=== PATIENT | female | born 1995 | race Caucasian/White ===

== ENCOUNTER 2025-07-28 13:46 | Inpatient (IN) | payer SELFPAY ==
[~2025-07-28] VITALS: Ht 170.2 cm; Wt 88.9 kg
[2025-07-28] MEDS ORDERED: LEVETIRACETAM 1,000MG in NACL 100ML PREMIX IV STA (13:50)
[2025-07-28] MEDS: LORAZEPAM 2MG/ML UD SYRINGE ONE (13:58)
[2025-07-28] MEDS: LORAZEPAM 2MG/ML UD SYRINGE IV SCH (14:00)
[2025-07-28] MEDS: LEVETIRACETAM 1000MG PREMIX 100 ML IV SCH (14:14)
[2025-07-28 14:29] LABS: BASOPHILS % 1.2 % (0.0-2.0); EOSINOPHILS % 1.1 % (0.0-5.0); HEMATOCRIT. 29.3 % (36.0-48.0); HEMOGLOBIN. 9.2 g/dL (12.0-16.0); LYMPHOCYTES % 32.4 % (20.0-50.0); MEAN PLATELET VOLUME 9.1 fl (7.4-10.4); MONOCYTES % 7.6 % (2.0-8.0); NEUTROPHILS % 57.7 % (40.0-76.0); PLATELET 316 x1000/uL (130-400); RED BLOOD CELL COUNT 4.66 mill/uL (4.2-5.4); RED CELL DISTRIBUTION WIDTH 20.1 % (11.6-14.6)
[2025-07-28 14:42] LABS: ADD RBC MORPHOLOGY YES
[2025-07-28 15:04] LABS: CREATININE 0.8 mg/dL (0.6-1.0); UREA NITROGEN BLOOD 9 mg/dL (9-23)
[2025-07-28 15:05] LABS: ASPARTATE AMINOTRANSFERASE 19 IU/L (<34)
[2025-07-28 15:06] LABS: BILIRUBIN DIRECT 0.1 mg/dL (<=3.0); BILIRUBIN TOTAL 0.5 mg/dL (0.1-1.0); HCG SCREEN NEGATIVE; PROTEIN TOTAL 7.1 g/dL (6.0-8.3)
[2025-07-28 16:06] LABS: PLATELET ESTIMATE NORMAL
[2025-07-28 17:16] LABS: CLARITY URINE CLEAR (CLEAR); COLOR URINE YELLOW (YELLOW); GLUCOSE URINE NEGATIVE (NEGATIVE); KETONES URINE NEGATIVE (NEGATIVE); LEUKOCYTE ESTERASE URINE 1+ (NEGATIVE); NITRITE URINE NEGATIVE (NEGATIVE); OCCULT BLOOD URINE NEGATIVE (NEGATIVE); PH URINE 8.0 (4.5-8.0); PROTEIN URINE NEGATIVE (NEGATIVE); SPECIFIC GRAVITY URINE 1.011 (1.005-1.030); UROBILINOGEN URINE 1.0 E.U./dL (0.2-1.0)
[2025-07-28 17:31] LABS: *AMPHETAMINES SCREEN URINE NEGATIVE (NEGATIVE); *BARBITURATES SCREEN URINE NEGATIVE (NEGATIVE); *BENZODIAZEPINES SCREEN URINE NEGATIVE (NEGATIVE); *COCAINE SCREEN URINE NEGATIVE (NEGATIVE); CANNABINOID URINE SCREEN NEGATIVE (NEGATIVE); ECSTASY MDMA SCREEN URINE NEGATIVE (NEGATIVE); METHADONE URINE SCREEN NEGATIVE (NEGATIVE); OPIATES URINE SCREEN NEGATIVE (NEGATIVE); PHENCYCLIDINE URINE SCREEN NEGATIVE (NEGATIVE)
[2025-07-28 18:04] LABS: BACTERIA URINE 2+; RBC URINE 0-2 /hpf (0-2); SQUAMOUS EPITHELIAL CELL URINE FEW /lpf (RARE/1+)
[2025-07-28] MEDS: CEFTRIAXONE 1GM/50ML 50 ML IV STA (18:36)
[2025-07-28] MEDS: KCL 10MEQ/50ML PREMIX 50 ML IV ONE (18:47)
[2025-07-28] MEDS ORDERED: DOCUSATE SODIUM 100MG CAPSULE PO PRN (19:15)
[2025-07-28] MEDS ORDERED: IPRATROPIUM/ALBUTEROL 0.5-3(2.5)MG/3ML NEB HHN PRN (19:15)
[2025-07-28] MEDS ORDERED: CLONIDINE 0.1MG TABLET PO PRN (19:15)
[2025-07-28 19:30] VITALS: BP 104/62; PULSE 80; RESP 16; TEMP 36.6404
[2025-07-28 20:00] VITALS: BP 104/62; PULSE 80; RESP 16; TEMP 36.6; O2SAT 99
[2025-07-28] MEDS: LEVETIRACETAM 500MG PREMIX 100 ML IV SCH ×2 (20:00→20:01)
[2025-07-28] MEDS: SODIUM CHLORIDE 0.9% 1,000 ML IV SCH (20:02)
[2025-07-28] MEDS: LORAZEPAM 2MG/ML UD SYRINGE IV PRN (20:07)
[2025-07-28 20:08] LABS: LACTATE DEHYDROGENASE 213 IU/L (120-246)
[2025-07-28 20:09] LABS: PHOSPHORUS 3.3 mg/dL (2.5-4.9)
[2025-07-28] MEDS ORDERED: LEVETIRACETAM 500MG in NACL 100ML PREMIX IV SCH (21:00)
[2025-07-28] MEDS: PIPERACILLIN/TAZO 3.375G/50ML 50 ML IV SCH (21:45)
[2025-07-29] VITALS: BP 106/66; PULSE 80; RESP 16; TEMP 36.4; O2SAT 100
[2025-07-29 00:33] LABS: TROPONIN I HIGH SENSITIVITY < 4 ng/L (3.0-34)
[2025-07-29] MEDS ORDERED: LORA-250 PO (03:55)
[2025-07-29 04:00] VITALS: BP 102/57; PULSE 83; RESP 17; TEMP 36.5; O2SAT 100
[2025-07-29] MEDS ORDERED: LEVETIRACETAM 1,500MG in NACL 100ML PREMIX IV SCH (07:30)
[2025-07-29 08:00] VITALS: BP 92/44; PULSE 85; RESP 18; TEMP 36.4; O2SAT 100
[2025-07-29] MEDS: PANTOPRAZOLE SODIUM 40 MG/VIAL IV SCH (09:39)
[2025-07-29] MEDS: LEVETIRACETAM 1500MG PREMIX 100 ML IV SCH (09:39)
[2025-07-29] MEDS: ONDANSETRON HCL 4MG/2ML INJ IV PRN (10:23)
[2025-07-29] MEDS: SODIUM CHLORIDE 0.9% 500 ML IV ONE (11:20)
[2025-07-29 12:00] VITALS: BP 90/47; PULSE 65; RESP 16; TEMP 36.2; O2SAT 99
[2025-07-29 13:28] LABS: BASOPHILS % 0.8 % (0.0-2.0); EOSINOPHILS % 1.0 % (0.0-5.0); HEMATOCRIT. 30.8 % (36.0-48.0); HEMOGLOBIN. 9.0 g/dL (12.0-16.0); LYMPHOCYTES % 23.6 % (20.0-50.0); MEAN PLATELET VOLUME 8.8 fl (7.4-10.4); MONOCYTES % 6.0 % (2.0-8.0); NEUTROPHILS % 68.6 % (40.0-76.0); PLATELET 277 x1000/uL (130-400); RED BLOOD CELL COUNT 4.60 mill/uL (4.2-5.4); RED CELL DISTRIBUTION WIDTH 20.1 % (11.6-14.6)
[2025-07-29 13:34] LABS: TROPONIN I HIGH SENSITIVITY < 4 ng/L (3.0-34)
[2025-07-29 16:00] VITALS: BP 103/65; PULSE 85; RESP 16; TEMP 36.3; O2SAT 100
[2025-07-29 20:00] VITALS: BP 81/38; PULSE 78; RESP 17; TEMP 36.2; O2SAT 98
[2025-07-29] MEDS: CEFTRIAXONE 1GM/50ML 50 ML IV SCH (20:37)
[2025-07-29 23:34] LABS: *AMPHETAMINES SCREEN URINE NEGATIVE (NEGATIVE); *BARBITURATES SCREEN URINE NEGATIVE (NEGATIVE); *BENZODIAZEPINES SCREEN URINE NEGATIVE (NEGATIVE); *COCAINE SCREEN URINE NEGATIVE (NEGATIVE); CANNABINOID URINE SCREEN NEGATIVE (NEGATIVE); ECSTASY MDMA SCREEN URINE NEGATIVE (NEGATIVE); METHADONE URINE SCREEN NEGATIVE (NEGATIVE); OPIATES URINE SCREEN NEGATIVE (NEGATIVE); PHENCYCLIDINE URINE SCREEN NEGATIVE (NEGATIVE)
[2025-07-30] VITALS: BP 102/46; RESP 18; TEMP 36.4; O2SAT 96
[2025-07-30 04:00] VITALS: BP 97/37; PULSE 69; RESP 18; TEMP 36.3; O2SAT 98
[2025-07-30 07:51] LABS: BASOPHILS % 0.6 % (0.0-2.0); EOSINOPHILS % 2.1 % (0.0-5.0); HEMATOCRIT. 31.6 % (36.0-48.0); HEMOGLOBIN. 9.6 g/dL (12.0-16.0); LYMPHOCYTES % 28.7 % (20.0-50.0); MEAN PLATELET VOLUME 9.0 fl (7.4-10.4); MONOCYTES % 7.3 % (2.0-8.0); NEUTROPHILS % 61.3 % (40.0-76.0); PLATELET 301 x1000/uL (130-400); RED BLOOD CELL COUNT 4.98 mill/uL (4.2-5.4); RED CELL DISTRIBUTION WIDTH 19.9 % (11.6-14.6)
[2025-07-30 08:00] VITALS: BP 100/62; PULSE 78; RESP 16; TEMP 36.6; O2SAT 100
[2025-07-30] MEDS ORDERED: CEFTRIAXONE SODIUM 1G VIAL IM SCH (08:00)
[2025-07-30 08:11] LABS: CREATININE 0.8 mg/dL (0.6-1.0); UREA NITROGEN BLOOD 6 mg/dL (9-23)
[2025-07-30] MEDS: FERROUS SULFATE 325MG TABLET PO SCH (11:45)
[2025-07-30 12:00] VITALS: BP 82/48; PULSE 73; RESP 16; TEMP 36.4; O2SAT 100
[2025-07-30 16:00] VITALS: BP 93/53; PULSE 76; RESP 16; TEMP 36.6; O2SAT 100
[2025-07-30 20:00] VITALS: BP 91/48; PULSE 79; RESP 18; TEMP 36.4; O2SAT 99
[2025-07-31] VITALS: BP 85/53; PULSE 76; RESP 18; TEMP 36.3; O2SAT 98
[2025-07-31] MEDS: SODIUM CHLORIDE 0.9% 500 ML IV ONE ×2 (01:15→02:34)
[2025-07-31] MEDS ORDERED: LEVETIRACETAM 500MG in NACL 100ML PREMIX IV ONE (02:15)
[2025-07-31] MEDS: LEVETIRACETAM 500MG PREMIX 100 ML IV NR (02:35)
[2025-07-31 04:00] VITALS: BP 93/54; PULSE 79; RESP 18; TEMP 35.3; O2SAT 97
[2025-07-31] MEDS: FERROUS SULFATE 300MG/5ML UDC PO SCH (06:16)
[2025-07-31 08:00] VITALS: BP 90/50; PULSE 99; RESP 16; TEMP 36.5; O2SAT 99
[2025-07-31 12:00] VITALS: BP 103/66; PULSE 79; RESP 16; TEMP 36.4; O2SAT 100
[2025-07-31 16:00] VITALS: BP 124/73; PULSE 90; RESP 16; TEMP 37; O2SAT 100
[2025-07-31 17:11] LABS: CHLAMYDIA TRACHOMATIS NAA Negative (Negative); NEISSERIA GONORRHOEAE NAA Negative (Negative)
[2025-07-31 20:00] VITALS: BP 100/62; PULSE 96; RESP 17; TEMP 36.5; O2SAT 97
[2025-07-31] MEDS ORDERED: LEVETIRACETAM 1000MG PREMIX 100 ML IV SCH (21:00)
[2025-07-31] MEDS ORDERED: LEVETIRACETAM 500MG PREMIX 100ML IV SCH (21:15)
[2025-07-31] MEDS: LEVETIRACETAM 500MG TABLET PO SCH (21:25)
[2025-08-01] VITALS: BP 101/56; PULSE 71; RESP 16; TEMP 36.7; O2SAT 98
[2025-08-01 04:00] VITALS: BP 96/52; PULSE 72; RESP 17; TEMP 36.7; O2SAT 98
[2025-08-01] MEDS: ACETAMINOPHEN 325MG TABLET PO PRN (13:05)
[2025-08-01 19:23] VITALS: BP 120/69; PULSE 70; RESP 18; O2SAT 99
[2025-08-01 20:00] VITALS: BP 97/54; PULSE 74; RESP 18; TEMP 36.2; O2SAT 97
[2025-08-02] VITALS: BP 95/49; PULSE 66; RESP 18; TEMP 36.2; O2SAT 98
[2025-08-02] MEDS: HYDROXYZINE 25MG TABLET PO PRN (03:11)
[2025-08-02 04:00] VITALS: BP 93/45; PULSE 60; RESP 18; TEMP 36; O2SAT 100
[2025-08-02] MEDS: ARIPIPRAZOLE 5MG TABLET PO SCH (08:22)
[2025-08-02 12:00] VITALS: BP 102/61; PULSE 92; RESP 16; TEMP 36.7; O2SAT 99
[2025-08-02] MEDS: LORAZEPAM 0.5MG TABLET PO PRN (13:11)
[2025-08-02 16:00] VITALS: RESP 16; O2SAT 99
[2025-08-02 20:00] VITALS: BP 112/69; PULSE 89; RESP 18; TEMP 36.4; O2SAT 98
[2025-08-02] MEDS ORDERED: LACO100T2 PO (22:23)
[2025-08-02] MEDS ORDERED: KEPP500 PO (22:23)
[2025-08-02] MEDS ORDERED: ABIL5 PO (22:23)
[2025-08-03] VITALS: BP 97/59; PULSE 81; RESP 17; TEMP 36.4; O2SAT 99
[2025-08-03 04:00] VITALS: BP 91/50; PULSE 71; RESP 16; TEMP 36.4; O2SAT 100
[2025-08-03 08:00] VITALS: BP 102/57; PULSE 78; RESP 16; TEMP 36.7; O2SAT 98
[2025-08-03 12:00] VITALS: BP 100/54; PULSE 82; RESP 16; TEMP 36.6; O2SAT 100
[2025-08-03 16:00] VITALS: BP 95/58; PULSE 84; RESP 16; TEMP 36.6; O2SAT 100
[2025-08-03 20:00] VITALS: BP_SYST 58; BP_SYST 98; BP_DIAS 50; PULSE 76; RESP 20; TEMP 36.9; O2SAT 100
[2025-08-04] VITALS: BP 103/75; PULSE 85; RESP 20; TEMP 36.7; O2SAT 100
[2025-08-04 04:00] VITALS: BP 104/56; PULSE 84; RESP 20; TEMP 36.1; O2SAT 100
[2025-08-04 08:00] VITALS: BP 105/67; PULSE 86; RESP 15; TEMP 36.6; O2SAT 99
[2025-08-04 11:17] VITALS: BP 105/67; PULSE 86; RESP 15; TEMP 97.8
[2025-08-04 12:00] VITALS: BP 102/65; PULSE 86; RESP 16; TEMP 36.6; O2SAT 100
== END 2025-08-04 17:38 | disposition home or self-care (01) | DRG 53 ==
LOC: ER 13:46 → EDBD 13:46 → 5WST 18:06 → EDBEDREQTM 18:07 → EDBEDREQ 18:07 → ENRESERV 19:10 → 5WST 08-04 06:33
PROVIDERS: ADMIT Student in an Organized Health Care Education/Training Program; ATTEND Student in an Organized Health Care Education/Training Program
PROC: 4A00X4Z Measurement of Central Nervous Electrical Activity, External Approach (ICD-10-PCS; 2025-07-31)
PROC: GZ56ZZZ Individual Psychotherapy, Supportive (ICD-10-PCS; principal; 2025-08-02)
DX: G40.409 Other generalized epilepsy and epileptic syndromes, not intractable, without status epilepticus (principal); D50.9 Iron deficiency anemia, unspecified; E87.6 Hypokalemia; N39.0 Urinary tract infection, site not specified; R31.9 Hematuria, unspecified; R73.9 Hyperglycemia, unspecified; I95.89 Other hypotension; F41.9 Anxiety disorder, unspecified; F32.A Depression, unspecified; F20.9 Schizophrenia, unspecified; Z91.148 Patient's other noncompliance with medication regimen for other reason; Z79.899 Other long term (current) drug therapy; Z91.51 Personal history of suicidal behavior
CPT/HCPCS: 36415; 70551; 71045; 80048; 80076; 80305; 80320; 80339; 81003; 82550; 82962; 83540; 83550; 83605; 83615; 83735; 84100; 84145; 84484; 84703; 85025; 85044; 87491; 87591; 93005; 93970; 95816; 96365; 96375; 97166; 99291; A4606; J0696; J1953; J2060; J2405; J2470; J2543; J3480; G0480

== ENCOUNTER 2025-08-06 22:46 | Inpatient (IN) | payer OTHER, MEDICAID ==
[~2025-08-06] VITALS: Ht 167.6 cm; Wt 86.2 kg
[~2025-08-06 22:46] MED LIST: ABIL5 PO; KEPP500 PO; LACO100T2 PO
[2025-08-06 22:53] VITALS: O2SAT 99
[2025-08-07 00:05] LABS: BASOPHILS % 0.7 % (0.0-2.0); EOSINOPHILS % 5.8 % (0.0-5.0); HEMATOCRIT. 36.1 % (36.0-48.0); HEMOGLOBIN. 12.2 g/dL (12.0-16.0); LYMPHOCYTES % 38.6 % (20.0-50.0); MEAN PLATELET VOLUME 8.8 fl (7.4-10.4); MONOCYTES % 8.7 % (2.0-8.0); NEUTROPHILS % 46.2 % (40.0-76.0); PLATELET 245 x1000/uL (130-400); RED BLOOD CELL COUNT 3.55 mill/uL (4.2-5.4); RED CELL DISTRIBUTION WIDTH 14.7 % (11.6-14.6)
[2025-08-07 00:20] LABS: UREA NITROGEN BLOOD 21 mg/dL (9-23)
[2025-08-07 00:22] LABS: ASPARTATE AMINOTRANSFERASE 27 IU/L (<34); BILIRUBIN DIRECT 0.2 mg/dL (<=3.0); BILIRUBIN TOTAL 0.6 mg/dL (0.1-1.0)
[2025-08-07 00:23] LABS: PROTEIN TOTAL 6.6 g/dL (6.0-8.3)
[2025-08-07 00:27] LABS: CREATININE 1.5 mg/dL (0.6-1.0)
[2025-08-07] MEDS: KETOROLAC 15MG/ML VIAL IV ONE (02:49)
[2025-08-07 02:58] LABS: HCG SCREEN NEGATIVE
[2025-08-07] MEDS ORDERED: ACETAMINOPHEN 325MG TABLET PO PRN (03:00)
[2025-08-07] MEDS ORDERED: IPRATROPIUM/ALBUTEROL 0.5-3(2.5)MG/3ML NEB HHN PRN (03:00)
[2025-08-07] MEDS ORDERED: MAGNESIUM/ALUMINUM HYDROXIDE/SIMETHICONE 30ML UDC PO PRN (03:00)
[2025-08-07] MEDS ORDERED: GUAIFENESIN 200MG/10ML SUGAR FREE UDC PO PRN (03:00)
[2025-08-07] MEDS ORDERED: CLONIDINE 0.1MG TABLET PO PRN (03:00)
[2025-08-07] MEDS ORDERED: DOCUSATE SODIUM 100MG CAPSULE PO PRN (03:00)
[2025-08-07 03:26] LABS: TROPONIN I HIGH SENSITIVITY < 4 ng/L (3.0-34)
[2025-08-07] MEDS: ARIPIPRAZOLE 5MG TABLET PO SCH (03:49)
[2025-08-07 05:32] LABS: CLARITY URINE CLEAR (CLEAR); COLOR URINE YELLOW (YELLOW); GLUCOSE URINE NEGATIVE (NEGATIVE); KETONES URINE NEGATIVE (NEGATIVE); LEUKOCYTE ESTERASE URINE 2+ (NEGATIVE); NITRITE URINE NEGATIVE (NEGATIVE); OCCULT BLOOD URINE NEGATIVE (NEGATIVE); PH URINE 6.5 (4.5-8.0); PROTEIN URINE NEGATIVE (NEGATIVE); SPECIFIC GRAVITY URINE 1.011 (1.005-1.030); UROBILINOGEN URINE 0.2 E.U./dL (0.2-1.0)
[2025-08-07 07:10] LABS: *AMPHETAMINES SCREEN URINE NEGATIVE (NEGATIVE)
[2025-08-07 07:11] LABS: *BARBITURATES SCREEN URINE NEGATIVE (NEGATIVE); *BENZODIAZEPINES SCREEN URINE NEGATIVE (NEGATIVE); *COCAINE SCREEN URINE NEGATIVE (NEGATIVE); CANNABINOID URINE SCREEN NEGATIVE (NEGATIVE); ECSTASY MDMA SCREEN URINE NEGATIVE (NEGATIVE); METHADONE URINE SCREEN NEGATIVE (NEGATIVE); OPIATES URINE SCREEN NEGATIVE (NEGATIVE); PHENCYCLIDINE URINE SCREEN NEGATIVE (NEGATIVE)
[2025-08-07 07:11] LABS: TROPONIN I HIGH SENSITIVITY < 4 ng/L (3.0-34)
[2025-08-07 07:12] LABS: CREATINE KINASE MB FRACTION < 0.5 ng/mL (0.5-3.6)
[2025-08-07 07:14] LABS: SQUAMOUS EPITHELIAL CELL URINE 1+ /lpf (RARE/1+)
[2025-08-07 07:15] LABS: BACTERIA URINE NONE SEEN; RBC URINE 0-2 /hpf (0-2); WBC URINE 0-2 /hpf (0-2)
[2025-08-07] MEDS: SODIUM CHLORIDE 0.9% 1,000 ML IV SCH (07:28)
[2025-08-07 08:00] VITALS: BP 110/68; PULSE 91; RESP 20; TEMP 36.8; O2SAT 99
[2025-08-07] MEDS ORDERED: LEVETIRACETAM 1,500MG in NACL 100ML PREMIX IV SCH (09:00)
[2025-08-07] MEDS: LEVETIRACETAM 1500MG PREMIX 100 ML IV SCH (09:23)
[2025-08-07] MEDS: FERROUS SULFATE 325MG TABLET PO SCH (09:23)
[2025-08-07] MEDS: PANTOPRAZOLE SODIUM 40 MG/VIAL IV SCH (09:24)
[2025-08-07 10:27] VITALS: BP 110/68; PULSE 92; RESP 18; TEMP 36.8072
[2025-08-07] MEDS: ACETAMINOPHEN 325MG TABLET PO PRN (11:50)
[2025-08-07] MEDS: ONDANSETRON HCL 4MG/2ML INJ IV PRN (11:51)
[2025-08-07] MEDS: HALOPERIDOL LACTATE 5MG/ML VIAL IM NR (13:09)
[2025-08-07 15:46] LABS: PLATELET 291 x1000/uL (130-400); RED BLOOD CELL COUNT 5.02 mill/uL (4.2-5.4); RED CELL DISTRIBUTION WIDTH 20.4 % (11.6-14.6)
[2025-08-07 15:52] LABS: TROPONIN I HIGH SENSITIVITY < 4 ng/L (3.0-34)
[2025-08-07 15:53] LABS: CREATINE KINASE MB FRACTION < 0.5 ng/mL (0.5-3.6)
[2025-08-07 16:00] VITALS: BP 121/76; PULSE 88; RESP 20; TEMP 36.9; O2SAT 99
[2025-08-07 17:52] LABS: CLARITY URINE CLEAR (CLEAR); COLOR URINE YELLOW (YELLOW); GLUCOSE URINE NEGATIVE (NEGATIVE); KETONES URINE NEGATIVE (NEGATIVE); LEUKOCYTE ESTERASE URINE NEGATIVE (NEGATIVE); NITRITE URINE NEGATIVE (NEGATIVE); OCCULT BLOOD URINE NEGATIVE (NEGATIVE); PH URINE 6.5 (4.5-8.0); PROTEIN URINE NEGATIVE (NEGATIVE); SPECIFIC GRAVITY URINE 1.005 (1.005-1.030); UROBILINOGEN URINE 0.2 E.U./dL (0.2-1.0)
[2025-08-07 20:00] VITALS: BP 109/66; PULSE 89; RESP 20; TEMP 36.9; O2SAT 100
[2025-08-07] MEDS: FAMOTIDINE 20MG/2ML VIAL IV SCH (21:18)
[2025-08-07 22:18] LABS: CREATININE 0.7 mg/dL (0.6-1.0); UREA NITROGEN BLOOD 5 mg/dL (9-23)
[2025-08-07 23:40] VITALS: BP 120/77; PULSE 98; RESP 20; TEMP 36.6; O2SAT 100
[2025-08-07] MEDS: LORAZEPAM 0.5MG TABLET PO PRN (23:59)
[2025-08-08 04:00] VITALS: BP 107/46; PULSE 71; RESP 16; TEMP 36.7; O2SAT 99
[2025-08-08 06:47] LABS: BASOPHILS % 0.6 % (0.0-2.0); EOSINOPHILS % 1.7 % (0.0-5.0); HEMATOCRIT. 30.0 % (36.0-48.0); HEMOGLOBIN. 9.4 g/dL (12.0-16.0); LYMPHOCYTES % 34.5 % (20.0-50.0); MEAN PLATELET VOLUME 9.1 fl (7.4-10.4); MONOCYTES % 8.0 % (2.0-8.0); NEUTROPHILS % 55.2 % (40.0-76.0); PLATELET 252 x1000/uL (130-400); RED BLOOD CELL COUNT 4.56 mill/uL (4.2-5.4); RED CELL DISTRIBUTION WIDTH 21.0 % (11.6-14.6)
[2025-08-08 06:53] LABS: CREATININE 0.7 mg/dL (0.6-1.0); TRIGLYCERIDE 98 mg/dL (0-150); UREA NITROGEN BLOOD 7 mg/dL (9-23)
[2025-08-08 06:54] LABS: LDL CHOLESTEROL 109 mg/dL (5-100)
[2025-08-08 06:56] LABS: T4 FREE 1.54 ng/dL (0.89-1.76)
[2025-08-08 08:00] VITALS: BP 89/46; PULSE 73; RESP 18; TEMP 37; O2SAT 98
[2025-08-08 12:00] VITALS: BP 98/60; PULSE 76; RESP 16; TEMP 36.7; O2SAT 76
[2025-08-08] MEDS: SERTRALINE HCL 50MG TABLET PO SCH (14:26)
[2025-08-08 16:00] VITALS: BP 103/63; PULSE 80; RESP 16; TEMP 37.1; O2SAT 100
[2025-08-08] MEDS ORDERED: LORAZEPAM 2MG/ML UD SYRINGE IV PRN (18:30)
[2025-08-08] MEDS: LORAZEPAM 2MG/ML UD SYRINGE IV PRN (19:31)
[2025-08-08 20:00] VITALS: BP 107/64; PULSE 72; RESP 16; TEMP 36.3; O2SAT 100
[2025-08-08] MEDS: LEVETIRACETAM 500MG TABLET PO SCH (20:30)
[2025-08-09] VITALS: BP 98/57; PULSE 70; RESP 19; TEMP 36.4; O2SAT 98
[2025-08-09 04:00] VITALS: BP 104/52; PULSE 63; RESP 17; TEMP 36.7; O2SAT 100
[2025-08-09 06:08] LABS: CREATININE 0.8 mg/dL (0.6-1.0); UREA NITROGEN BLOOD 9 mg/dL (9-23)
[2025-08-09 06:29] LABS: PLATELET 255 x1000/uL (130-400); RED BLOOD CELL COUNT 4.79 mill/uL (4.2-5.4); RED CELL DISTRIBUTION WIDTH 22.8 % (11.6-14.6)
[2025-08-09 08:00] VITALS: BP 104/64; PULSE 87; RESP 16; TEMP 35.8; O2SAT 100
[2025-08-09 12:00] VITALS: BP 106/64; PULSE 82; RESP 18; TEMP 36.6; O2SAT 99
[2025-08-09 16:00] VITALS: BP 105/62; PULSE 87; RESP 19; TEMP 36.4; O2SAT 95
[2025-08-09 20:00] VITALS: BP 91/52; PULSE 92; RESP 18; TEMP 36.6; O2SAT 100
[2025-08-10] VITALS (7 sets, daily range): BP systolic 96–115; BP diastolic 55–71; PULSE 52–81; RESP 17–19; TEMP 36.3–36.7; O2SAT 96–100
[2025-08-10 11:10] LABS: PLATELET 272 x1000/uL (130-400); RED BLOOD CELL COUNT 5.05 mill/uL (4.2-5.4); RED CELL DISTRIBUTION WIDTH 24.7 % (11.6-14.6)
[2025-08-10 11:31] LABS: CREATININE 0.8 mg/dL (0.6-1.0); UREA NITROGEN BLOOD 11 mg/dL (9-23)
[2025-08-10 11:33] LABS: PHOSPHORUS 3.4 mg/dL (2.5-4.9)
== END 2025-08-10 20:25 | disposition short-term general hospital (02) | DRG 53 ==
LOC: ER 22:46 → 8WST 08-07 01:59 → EDBEDREQTM 08-07 02:09 → EDBEDREQ 08-07 02:09 → ENRESERV 08-07 07:34 → 6EST 08-08 11:52
PROVIDERS: ADMIT Student in an Organized Health Care Education/Training Program; ATTEND Student in an Organized Health Care Education/Training Program
DX: G40.901 Epilepsy, unspecified, not intractable, with status epilepticus (principal); N17.0 Acute kidney failure with tubular necrosis; F32.3 Major depressive disorder, single episode, severe with psychotic features; D50.9 Iron deficiency anemia, unspecified; F43.10 Post-traumatic stress disorder, unspecified; F41.1 Generalized anxiety disorder; R45.851 Suicidal ideations; Z79.899 Other long term (current) drug therapy; Z91.148 Patient's other noncompliance with medication regimen for other reason
CPT/HCPCS: 36415; 80048; 80061; 80076; 80305; 80320; 80339; 81003; 82550; 82553; 82962; 83735; 84100; 84300; 84439; 84443; 84484; 84703; 85025; 85027; 93005; 99285; A4606; J1308; J1630; J1885; J1953; J2060; J2405; J2470; G0480